=== PATIENT | female | born 2000 | race Caucasian/White ===

== ENCOUNTER 2019-03-05 16:56 | Inpatient (IN) | payer OTHER ==
[~2019-03-05] VITALS: Ht 162.6 cm; Wt 70.8 kg
--- NOTE | 2019-03-05 17:10 | NUR ---
[id number] FROM [facility], ALTERED, UNRESPONSIVE SINCE 10AM. HYPOTENSIVE SHINGLE PACKER BG 99 SHINGLE PACKER, RESPONDS TO PAIN STIMULI. PUPILS PINPOINT AND NON-REACTIVE TO LIGHT. SATTING AT 87% ON RA, PLACED ON 2L O2 VIA NC. SKIN WARM, DRY, INTACT. NO ACUTE DISTRESS NOTED. SEEN BY DR BOJORQUEZ. AWAITING ORDERS
[2019-03-05 17:28] LABS: BASOPHILS # (AUTO) 0.1 /CMM (0.0-0.2); BASOPHILS % (AUTO) 0.3 % (0.0-2.0); HEMATOCRIT 40 % (33-45); HEMOGLOBIN 13.1 g/dL (11.5-14.8); LYMPHOCYTES # (AUTO) 1.5 /CMM (0.8-4.8); LYMPHOCYTES % (AUTO) 8.1 % (20.0-44.0); MEAN CORPUSCULAR HGB CONC 33 g/dl (31.0-36.0); MEAN CORPUSCULAR VOLUME 91 fL (82-100); MONOCYTES # (AUTO) 1.3 /CMM (0.1-1.30); NEUTROPHILS # (AUTO) 15.8 /CMM (1.8-8.9); NEUTROPHILS % (AUTO) 84.6 % (43.0-81.0); PLATELET COUNT (AUTO) 237 /CMM (150-450); RED BLOOD CELL COUNT(AUTO) 4.35 MIL/uL (4.0-5.2); WHITE BLOOD COUNT (AUTO) 18.7 K/uL (4.3-11.0)
[2019-03-05] MEDS ORDERED: IV NS 0.9% 1,000 ML BAG IV ONE ×2 (17:30→18:00)
[2019-03-05 17:36] LABS: CALCIUM, SERUM 7.8 mg/dL (8.5-10.1); CREATININE 2.1 mg/dL (0.6-1.3); POTASSIUM 5.2 mmol/L (3.5-5.1)
--- NOTE | 2019-03-05 18:19 | NUR ---
CALLED [facility] FOR TELE BED
--- NOTE | 2019-03-05 18:20 | NUR ---
CULTURES DRAWN AND SENT TO STAT LAB
[2019-03-05 18:28] LABS: ALANINE AMINOTRANSFERASE 1242 U/L (12-78); ALBUMIN 4.1 g/dL (3.4-5.0); ALCOHOL, BLOOD < 3 mg/dL (0-0); ALKALINE PHOSPHATASE 82 U/L (46-116); ASPARTATE AMINOTRANSFERASE 607 U/L (15-37); BILIRUBIN,DIRECT 0.1 mg/dL (0.0-0.2); BILIRUBIN,TOTAL 0.3 mg/dL (0.2-1.0); TOTAL PROTEIN, SERUM 8.1 g/dL (6.4-8.2)
--- NOTE | 2019-03-05 18:40 | NUR ---
URINE COLLECTED VIA STRAIGHT CATH PER PROTOCOL AND SENT TO STAT LAB.
[2019-03-05 18:55] LABS: APPEARANCE,URINE Clear (CLEAR); BILIRUBIN,URINE SMALL (NEGATIVE); BLOOD, URINE Large Ery/uL (NEGATIVE); COLOR,URINE Yellow (YELLOW); KETONES,URINE 15 (NEGATIVE); LEUKOCYTE ESTERASE ,URINE Negative (NEGATIVE); NITRITE, URINE Positive (NEGATIVE); PROTEIN,URINE >=300 mg/dl (NEGATIVE); UGLUCOSE Negative (NEGATIVE)
[2019-03-05 19:16] LABS: BACTERIA,URINE 3+ /HPF (None Seen); RBC,URINE 21-50 /HPF (0-2); SQUAMOUS EPITHELIAL CELL,UR Few /HPF (None Seen)
[2019-03-05 19:26] LABS: SERUM AMMONIA 7 umol/L (11-32)
[2019-03-05 19:28] LABS: ACETAMINOPHEN < 10 ug/ml (10-30)
[2019-03-05] MEDS ORDERED: HYDROCODONE/APAP 5/325MG 1 EACH TABLET PO PRN (19:30)
[2019-03-05] MEDS ORDERED: MAGNESIUM HYDROXIDE 30 ML UDC PO PRN (19:30)
[2019-03-05] MEDS ORDERED: Z GUARD REMEDY 2 OZ OINT TP PRN (19:30)
[2019-03-05] MEDS ORDERED: CEFTRIAXONE 1GM BAG (ER ONLY) 1 GM/50 ML PIGGYBACK IV ONE (19:30)
[2019-03-05] MEDS ORDERED: ONDANSETRON HCL/PF 4 MG/2 ML VIAL IVP PRN (19:30)
[2019-03-05] MEDS ORDERED: ZOLPIDEM TARTRATE 5 MG TABLET PO PRN (19:30)
[2019-03-05] MEDS ORDERED: MAG HYDROX/AL HYDROX/SIMETH 30 ML UDC PO PRN (19:30)
[2019-03-05] MEDS ORDERED: ACETAMINOPHEN 325 MG TABLET PO PRN (19:30)
[2019-03-05 19:37] LABS: THYROID STIMULATING HORMONE 0.733 uIU/mL (0.358-3.74)
--- NOTE | 2019-03-05 19:45 | NUR ---
WINE STEWARD/STEWARDESS AT BEDSIDE
[2019-03-05] MEDS ORDERED: CEFTRIAXONE 1GM BAG (ER ONLY) 50 ML IV ONE (19:49)
--- NOTE | 2019-03-05 20:21 | NUR ---
311-[address] [facility] BED
--- NOTE | 2019-03-05 20:30 | NUR ---
PT AWAKE AND ALERT, ASSISTED TO USE RESTROOM. C/O RINGING IN EARS. AWARE SHE IS IN THE HOSPITAL, BUT NOT SURE WHERE. SEEN BY ER
--- NOTE | 2019-03-05 20:31 | NUR ---
SATTING AT 97% ON RA
--- NOTE | 2019-03-05 20:46 | NUR ---
REPORT GIVEN TO CARLENE CARLOS FOR 311-1. [facility], A[facility]
[2019-03-05 21:00] VITALS: BP 101/56
--- NOTE | 2019-03-05 21:10 | NUR ---
RECEIVED PATIENT IN BED SLEEPY, AROUSABLE. BEING ADMITTED FOR CAMERON, ENCEPHALOPATHY, DRUG OVERDOSE. AO X 3, ABLE TO MAKE NEEDS KNOWN. NO ACUTE DISTRESS NOTED. DENIES ANY PAIN AT THIS TIME. IV SITE PATENT, INTACT; FLUSHED. SKIN INTACT. SAFETY REMINDERS GIVEN. ON LOW BED WITH BILATERAL UPPER SIDE RAILS UP. CALL SANCHEZ WITHIN EASY REACH. WILL CONTINUE TO MONITOR.
[2019-03-05 21:15] VITALS: BP 101/56
--- NOTE | 2019-03-05 21:16 | NUR ---
[facility]
[2019-03-05] MEDS: CEFTRIAXONE 1 G in IV D5W 50 ML IV SCH (21:30)
[2019-03-05] MEDS: IV D5/0.45 NACL 1,000 ML IV PRN (23:33)
[2019-03-06] VITALS (8 sets, daily range): BP systolic 86–104; BP diastolic 50–68
[2019-03-06] MEDS ORDERED: IV NS 0.9% 1,000 ML BAG IV ONE (05:00)
--- NOTE | 2019-03-06 05:00 | NUR ---
RELAYED LACTIC ACID 2.6 AND BP 88/50 TO WILLIAMS LONG NP WITH NEW ORDER FOR 1L NS BOLUS AND LACTIC ACID REDRAW NOTED AND CARRIED OUT.
--- NOTE | 2019-03-06 06:00 | NUR ---
PATIENT ASLEEP, EASILY AROUSABLE. RESPIRATIONS EVEN. NO SIGNS OF PAIN NOTED. IVF INFUSING ORDERED. NEEDS ATTENDED. SAFETY PRECAUTIONS AND COMFORT MEASURES IN PLACE. WILL GIVE REPORT TO DAY SHIFT FOR CONTINUITY OF CARE.
[2019-03-06 06:46] LABS: BASOPHILS % (AUTO) 0.3 % (0.0-2.0); EOSINOPHILS % (AUTO) 0.2 % (0.0-6.0); HEMATOCRIT 34 % (33-45); HEMOGLOBIN 11.3 g/dL (11.5-14.8); LYMPHOCYTES # (AUTO) 1.9 /CMM (0.8-4.8); LYMPHOCYTES % (AUTO) 20.6 % (20.0-44.0); MEAN CORPUSCULAR HGB CONC 34 g/dl (31.0-36.0); MEAN CORPUSCULAR VOLUME 92 fL (82-100); MONOCYTES # (AUTO) 0.7 /CMM (0.1-1.30); MONOCYTES % (AUTO) 7.7 % (2.0-12.0); NEUTROPHILS # (AUTO) 6.6 /CMM (1.8-8.9); NEUTROPHILS % (AUTO) 71.2 % (43.0-81.0); PLATELET COUNT (AUTO) 180 /CMM (150-450); RED BLOOD CELL COUNT(AUTO) 3.68 MIL/uL (4.0-5.2); WHITE BLOOD COUNT (AUTO) 9.3 K/uL (4.3-11.0)
[2019-03-06 07:20] LABS: CALCIUM, SERUM 7.2 mg/dL (8.5-10.1); CREATININE 1.3 mg/dL (0.6-1.3); PHOSPHORUS 4.8 mg/dL (2.5-4.9); POTASSIUM 3.3 mmol/L (3.5-5.1)
[2019-03-06 07:29] LABS: BILIRUBIN,DIRECT 0.1 mg/dL (0.0-0.2); BILIRUBIN,TOTAL 0.3 mg/dL (0.2-1.0); TOTAL PROTEIN, SERUM 6.1 g/dL (6.4-8.2)
--- NOTE | 2019-03-06 07:52 | NUR ---
RN OPENING NOTES PT SLEEPING IN BED. EASILY AROUSABLE. NO APPARENT S/S OF PAIN, DISTRESS OR SOB AT THIS TIME. PT TELE MONITORED NSR RATE 56. PT CONTINUES TO BE NPO. PATIENT HAS LEFT AC #20 IV RUNNING D51/2NS @125 ML/HR. SAFETY PRECAUTIONS IN PLACE, BED IN LOWEST LOCKED POSITION, X2 SIDE RAILS UP AND CALL LIGHT WITHIN REACH, WILL CONTINUE TO MONITOR.
--- NOTE | 2019-03-06 08:28 | NUR ---
RN NOTES CONFIRMED WITH PATIENT THAT SHE HAS NO ALLERGIES. WILL UPDATE HER RECORD.
[2019-03-06] MEDS ORDERED: DULO60CA45 PO (09:32)
[2019-03-06] MEDS ORDERED: CARV3.122 PO (09:32)
[2019-03-06] MEDS ORDERED: HYDR-4384 PO (09:32)
[2019-03-06] MEDS ORDERED: ASPI-605 PO (09:32)
[2019-03-06] MEDS ORDERED: QUET300T2 PO (09:32)
[2019-03-06] MEDS ORDERED: TYL2T PO (09:32)
[2019-03-06] MEDS ORDERED: ESCI10TA PO (09:32)
[2019-03-06] MEDS ORDERED: ATOR20TA PO (09:32)
[2019-03-06] MEDS ORDERED: SPIR25TA6 PO (09:32)
[2019-03-06] MEDS ORDERED: FURO-144 PO (09:32)
[2019-03-06] MEDS ORDERED: METO100T14 PO (09:32)
[2019-03-06] MEDS ORDERED: PANT40TA4 PO (09:32)
[2019-03-06] MEDS ORDERED: TRAZ-214 PO (09:32)
[2019-03-06] MEDS ORDERED: LISI2.5T2 PO (09:32)
[2019-03-06] MEDS ORDERED: PREG150C PO (09:32)
[2019-03-06] MEDS: IV D5/0.45 NACL 1,000 ML IV PRN ×2 (10:26→23:49)
--- NOTE | 2019-03-06 11:11 | NUR ---
Social service consult for drug abuse. Pt. is a 19 year old female who was admitted to [facility] for altered mental status and acute Renal failure. Pt. states she recently moved into a sober living located at [address] [place] [address] in [facility]. Pt. was brought in by ambulance from sober living facility for evaluation of altered mental status secondary to suspected heroin overdose. Per EMS, the patient left the facility last night and staff found her altered this morning in her room and believe she took heroin last night. Per EMS, foil and other paraphernalia found underneath her bed, pointing to drug use. CRISTIANO met with pt. bedside. Pt. is alert and oriented x 4. Pt. was recently discharged from a drug rehabilitation center named "[facility]" located in [facility]. Pt. is a heroin user and has been using heroin since age 16. Prior to attending the rehabilitation program, pt. was at another sober living. CRISTIANO inquired with pt. if she has contact number for the sober living. Pt. stated, "no." Pt. further stated she is not sure if she is going to go back there. She stated she will find another sober living to go to. SW asked pt. if she needs referrals to sober [facility]. Pt. declined stating she knows how to get referrals. Pt. was unable to provide an emergency contact when asked. Pt. denies alcohol, cigarette and marijuana use. Pt. states she has no psychiatric diagnoses and is not suicidal or homicidal. SW to follow up with pt. prior to discharge. SW is available, if needed.
[2019-03-06] MEDS: POTASSIUM CL. PREMIX PERIPHER. 50 ML IV SCH ×2 (11:26→12:21)
[2019-03-06] MEDS: CEFTRIAXONE 1 G in IV D5W 50 ML IV SCH (18:18)
--- NOTE | 2019-03-06 18:53 | NUR ---
RN CLOSING NOTES PT AWAKE AND RESTING IN BED. NO COMPLAINTS OF PAIN, DISTRESS OR SOB DURING SHIFT. PATIENT HAS LEFT AC #20 IV RUNNING D51/2NS @125 ML/HR. SAFETY PRECAUTIONS IN PLACE, BED IN LOWEST LOCKED POSITION, X2 SIDE RAILS UP AND CALL LIGHT WITHIN REACH, WILL ENDORSE TO MOLD WASHER NURSE FOR CONTINUITY OF CARE.
--- NOTE | 2019-03-06 19:30 | NUR ---
RN OPENING NOTES PATIENT IS RESTING IN BED, EASILY AROUSABLE. NO SIGNS OF RESPIRATORY DISTRESS, NO SIGNS OF SHORTNESS OF BREATH. PATIENT HAS LEFT AC #20 WITH D5 1/2 NS RUNNING @125 ML/HR. SAFETY PRECAUTIONS IMPLEMENTED; CALL LIGHT WITHIN REACH, BED LOCKED, BED LOWEST POSITION, SIDE RAILS UP X2. WILL CONTINUE TO MONITOR.
--- NOTE | 2019-03-07 07:07 | NUR ---
RN CLOSING NOTES PATIENT IS RESTING IN BED, EASILY AROUSABLE TO VOICE. NO SIGNS OF RESPIRATORY DISTRESS, NO SIGNS OF SOB. NO ACUTE CHANGES OVERNIGHT. SAFETY PRECAUTIONS IMPLEMENTED; CALL LIGHT WITHIN REACH, BED LOWEST POSITION, BED LOCKED, SIDE RAILS UP X2. ENDORSED CARE TO DAY NURSE.
[2019-03-07 07:36] LABS: BASOPHILS % (AUTO) 0.2 % (0.0-2.0); EOSINOPHILS % (AUTO) 0.9 % (0.0-6.0); HEMATOCRIT 32 % (33-45); HEMOGLOBIN 11.1 g/dL (11.5-14.8); LYMPHOCYTES # (AUTO) 1.3 /CMM (0.8-4.8); LYMPHOCYTES % (AUTO) 13.3 % (20.0-44.0); MEAN CORPUSCULAR HGB CONC 34 g/dl (31.0-36.0); MEAN CORPUSCULAR VOLUME 90 fL (82-100); MONOCYTES # (AUTO) 0.7 /CMM (0.1-1.30); MONOCYTES % (AUTO) 7.3 % (2.0-12.0); NEUTROPHILS # (AUTO) 7.7 /CMM (1.8-8.9); NEUTROPHILS % (AUTO) 78.3 % (43.0-81.0); PLATELET COUNT (AUTO) 216 /CMM (150-450); RED BLOOD CELL COUNT(AUTO) 3.59 MIL/uL (4.0-5.2); WHITE BLOOD COUNT (AUTO) 9.9 K/uL (4.3-11.0)
[2019-03-07 07:51] LABS: CALCIUM, SERUM 7.9 mg/dL (8.5-10.1); CREATININE 0.7 mg/dL (0.6-1.3); PHOSPHORUS 1.5 mg/dL (2.5-4.9); POTASSIUM 3.4 mmol/L (3.5-5.1)
[2019-03-07 08:00] VITALS: BP 111/60
[2019-03-07 08:01] LABS: BILIRUBIN,DIRECT 0.2 mg/dL (0.0-0.2); BILIRUBIN,TOTAL 0.5 mg/dL (0.2-1.0); TOTAL PROTEIN, SERUM 6.3 g/dL (6.4-8.2)
[2019-03-07] MEDS: IV D5/0.45 NACL 1,000 ML IV PRN (08:41)
--- NOTE | 2019-03-07 11:58 | NUR ---
RN NOTES PT SPIT KDUR PILL INTO HER CUP OF WATER. WILL PULL A SECOND K DUR PILL.
[2019-03-07] MEDS ORDERED: POTASSIUM CHLORIDE 20 MEQ TAB.PRT.SR PO SCH (12:00)
[2019-03-07] MEDS ORDERED: POTASSIUM PHOSPHATE MM 7.5 MMOL in IV D5W 100 ML IV SCH (15:00)
[2019-03-07 16:00] VITALS: BP_SYST 111; BP_SYST 115; BP_DIAS 65; BP_DIAS 66
--- NOTE | 2019-03-07 18:10 | NUR ---
MANAGER MEDICAID NOTES PT STABLE AT DISCHARGE. PT AMBULATORY, PT GOING TO [facility]. ALL DISCHARGE PAPERWORK DISCUSSED, SIGNED, COPIED, AND GIVEN WITH THE PATIENT. THE PATIENT GIVEN PANTS AND A SHIRT TO WEAR. ALL BELONGINGS TAKEN WITH PATIENT. IV AND ID BAND REMOVED PRIOR TO DISCHARGE. PT ESCORTED OFF THE UNIT BY RN.
[2019-03-07 18:34] LABS: LIPASE 175 U/L (73-393)
[2019-03-07 19:33] LABS: CREATINE KINASE, TOTAL 6771 U/L (26-192)
== END 2019-03-07 18:09 | disposition home or self-care (01) | DRG 917 ==
LOC: ER 17:03 → TELE 20:26 → MED 03-06 08:06
PROVIDERS: ADMIT Student in an Organized Health Care Education/Training Program; ATTEND Student in an Organized Health Care Education/Training Program
DX: T40.1X1A Poisoning by heroin, accidental (unintentional), initial encounter (principal); N17.0 Acute kidney failure with tubular necrosis; G92 Toxic encephalopathy; E87.2 Acidosis; N39.0 Urinary tract infection, site not specified; S36.119A Unspecified injury of liver, initial encounter; M62.82 Rhabdomyolysis; E87.5 Hyperkalemia; E83.51 Hypocalcemia; D72.829 Elevated white blood cell count, unspecified; B96.20 Unspecified Escherichia coli [E. coli] as the cause of diseases classified elsewhere; R74.0 Nonspecific elevation of levels of transaminase and lactic acid dehydrogenase [LDH]; Y92.009 Unspecified place in unspecified non-institutional (private) residence as the place of occurrence of the external cause; K76.0 Fatty (change of) liver, not elsewhere classified
CPT/HCPCS: 36415; 70450-TC; 71045-TC; 76705-TC; 80048-TC; 80061-TC; 80074; 80076-TC; 80305; 81000-TC; 82140-TC; 82550-TC; 82977-TC; 83605-TC; 83690-TC; 83735-TC; 84100-TC; 84443-TC; 84702-TC; 85025-TC; 86706; 87040-TC; 87081-TC; 87086-TC; 87186-TC; G0378; G0480; J0696; J3480; J3490; J7030; J7060